=== PATIENT | male | born 1975 | race Two or more races ===

== ENCOUNTER 2021-07-21 19:46 | Emergency (ER) | payer MEDICAID ==
[~2021-07-21] VITALS: Ht 172.7 cm; Wt 70.8 kg
[2021-07-21] MEDS ORDERED: IBUP-1955 PO (20:27)
--- NOTE | 2021-07-21 20:54 | NUR ---
Patient discharged to home in stable condition. Written and verbal after care instructions given. Patient verbalizes understanding of instruction.
[2021-07-21 20:55] VITALS: BP 133/70
== END 2021-07-21 20:55 | disposition home or self-care (01) ==
LOC: ER 19:50
DX: M25.512 Pain in left shoulder (principal)
CPT/HCPCS: 73030-TC